=== PATIENT | male | born 1950 | race Caucasian/White ===

== ENCOUNTER 2019-06-18 20:17 | Emergency (ER) | payer MEDICAID, MEDICARE ==
[~2019-06-18] VITALS: Ht 167.6 cm; Wt 73.0 kg
[2019-06-18] MEDS ORDERED: OXYCODONE HCL/ACETAMINOPHEN 5/325MG TABLET PO ONE (22:15)
[2019-06-18] MEDS ORDERED: IBUPROFEN 200MG TABLET PO ONE (22:15)
[2019-06-19 02:53] VITALS: BP 134/78
== END 2019-06-19 02:56 | disposition home or self-care (01) ==
LOC: ER 20:17
DX: G54.6 Phantom limb syndrome with pain (principal); I20.9 Angina pectoris, unspecified; E11.9 Type 2 diabetes mellitus without complications; K21.9 Gastro-esophageal reflux disease without esophagitis; I10 Essential (primary) hypertension
CPT/HCPCS: 99283